=== PATIENT | male | born 1995 | race Two or more races ===

== ENCOUNTER 2018-11-20 10:35 | Emergency (ER) | payer SELFPAY ==
[~2018-11-20] VITALS: Ht 170.2 cm; Wt 86.6 kg
[2018-11-20 12:06] VITALS: BP 139/89
== END 2018-11-20 12:51 | disposition home or self-care (01) ==
LOC: ER 10:40
DX: S93.402A Sprain of unspecified ligament of left ankle, initial encounter (principal)
CPT/HCPCS: 73610; 73630